=== PATIENT | female | born 1975 | race Caucasian/White ===

== ENCOUNTER 2024-03-08 03:42 | Emergency (ER) | payer MEDICAID ==
[~2024-03-08] VITALS: Ht 157.5 cm; Wt 76.0 kg
[2024-03-08 04:01] LABS: Basophils # (auto) 0 10 ^3/uL (0-0.2); Basophils % (auto) 0.3 % (0.0-2.0); Eosinophils # (auto) 0 10 ^3/uL (0-0.8); Eosinophils % (auto) 0.1 % (0.0-7.0); Hematocrit 38.7 % (36.0-46.0); Hemoglobin 12.3 g/dL (12.2-16.2); Lymphocytes # (auto) 2.4 10 ^3/uL (0.4-5.4); Lymphocytes % (auto) 18.7 % (10.0-50.0); Mean Corpuscular Hemoglobin 28.8 pg (28.0-32.0); Mean Corpuscular Hgb Conc. 31.9 g/dL (32.0-36.0); Mean Corpuscular Volume 90.2 fL (80.0-100.0); Monocytes # (auto) 0.9 10 ^3/uL (0-1.3); Neutrophils # (auto) 9.5 10 ^3/uL (1.6-8.6); Neutrophils % (auto) 73.9 % (37.0-80.0); Red Blood Cells 4.29 10^6/uL (4.0-5.20); Red Cell Distribution Width 15.2 % (11.8-14.3); White Blood Cell 12.9 10^3/uL (4.4-10.8)
[2024-03-08 04:15] LABS: Chloride 109 mmol/L (98-107); Potassium 4.4 mmol/L (3.5-5.1); Sodium 143 mmol/L (136-145)
[2024-03-08 04:16] LABS: Anion Gap 3 (5-15); Carbon Dioxide 31 mmol/L (20-30)
[2024-03-08 04:17] LABS: Calcium 10.4 mg/dL (8.7-10.4)
[2024-03-08 04:21] LABS: BUN/Creatinine Ratio 17.4 (10.0-20.0); Blood Urea Nitrogen 16 mg/dL (9-23); Glucose 89 mg/dL (74-106)
[2024-03-08] MEDS ORDERED: IBUP-1455 PO (04:54)
[2024-03-08] MEDS ORDERED: ACET1CAP14 PO (04:54)
[2024-03-08 05:02] VITALS: BP 153/88; TEMP 98.1; O2SAT 99
[2024-03-08] MEDS: HYDROcodone-ACET 10/325MG TAB PO ONE (05:02)
[2024-03-08 05:03] VITALS: PULSE 80; RESP 20
== END 2024-03-08 05:06 | disposition home or self-care (01) ==
LOC: ER 03:42
DX: M79.18 Myalgia, other site (principal); R07.89 Other chest pain; I10 Essential (primary) hypertension; V49.9XXA Car occupant (driver) (passenger) injured in unspecified traffic accident, initial encounter; Y93.89 Activity, other specified; Y92.89 Other specified places as the place of occurrence of the external cause; Y99.8 Other external cause status
CPT/HCPCS: 36415; 80048; 84484; 85025; 93005